=== PATIENT | male | born 1960 | race American Indian/Alaskan Native ===

== ENCOUNTER 2016-12-12 07:29 | Day surgery (SDC) | payer MEDICAID ==
[2016-12-12] MEDS ORDERED: ceFAZolin IV 2 gm in Dextrose 0 GM/0 ML BAG IVPB ONE (07:36)
[2016-12-12] MEDS ORDERED: Bupivacaine-Epi 0.25%-1:200,000 PF Inj ONE (07:36)
[2016-12-12] MEDS ORDERED: Lidocaine 1% Inj (20ml) ONE (07:37)
[2016-12-12] MEDS ORDERED: Propofol 10 mg/ml Inj (20 ML) ONE (07:41)
[2016-12-12] MEDS ORDERED: Midazolam 2 MG/2 ML VIAL ONE (07:41)
[2016-12-12 07:45] VITALS: BMI 25.9
== END 2016-12-12 08:45 | disposition home or self-care (01) ==
LOC: C.SDS 07:29
PROVIDERS: ATTEND Surgery Surgical Critical Care
DX: K40.90 Unilateral inguinal hernia, without obstruction or gangrene, not specified as recurrent (principal); Z53.09 Procedure and treatment not carried out because of other contraindication; F17.210 Nicotine dependence, cigarettes, uncomplicated; I10 Essential (primary) hypertension
CPT/HCPCS: 49587; J2001